=== PATIENT | female | born 1950 | race Caucasian/White ===

== ENCOUNTER 2021-02-17 11:31 | Emergency (ER) | payer OTHER ==
[~2021-02-17] VITALS: Ht 160 cm; Wt 82.6 kg
[2021-02-17] MEDS ORDERED: SYNTHROID150 MCG PO (11:49)
[2021-02-17] MEDS ORDERED: ABANEU-SL TABL1 EACH SL (11:49)
[2021-02-17] MEDS ORDERED: VITAMIN D350 MC4 PO (11:49)
== END 2021-02-17 14:27 | disposition home or self-care (01) ==
LOC: ER 11:31
DX: M62.838 Other muscle spasm (principal)

== ENCOUNTER 2022-02-16 18:03 | Emergency (ER) | payer OTHER ==
[~2022-02-16] VITALS: Ht 160 cm; Wt 82.6 kg
[~2022-02-16 18:03] MED LIST: ABANEU-SL TABL1 EACH SL; SYNTHROID150 MCG PO; VITAMIN D350 MC4 PO
[2022-02-16] MEDS ORDERED: SYNTHROID200 MCG PO (18:13)
[2022-02-16] MEDS ORDERED: LEVO-T25 MCG PO (18:13)
== END 2022-02-16 21:44 | disposition home or self-care (01) ==
LOC: ER 18:03
DX: U07.1 COVID-19 (principal)